=== PATIENT | male | born 1935 | race Caucasian/White ===

== ENCOUNTER 2019-01-18 19:58 | Emergency (ER) | payer MEDICARE, BC ==
[2019-01-18] MEDS ORDERED: predniSONE 20 MG Tab PO ONE (19:59)
[2019-01-18] MEDS ORDERED: Dexamethasone 4 MG/ML SDV IVPUSH ONE (20:11)
[2019-01-18] MEDS ORDERED: Loratadine 10 MG Tab PO ONE (20:11)
[2019-01-18] MEDS ORDERED: diphenhydrAMINE 50 MG/ML SDV IVPUSH ONE (20:11)
[2019-01-18] MEDS ORDERED: Famotidine 20 MG/2 ML SDV IVPUSH ONE (20:11)
--- NOTE | 2019-01-18 20:17 | EDM.PDOC ---
ED HPI GENERAL MEDICAL PROBLEM - General Chief Complaint: Allergic Reaction Stated Complaint: hives Time Seen by Provider: 01/18/19 20:07 Source of Information: Reports: Patient History Limitations: Reports: No Limitations - History of Present Illness INITIAL COMMENTS - FREE TEXT/NARRATIVE: in with c/o generalized rash with itching for the last few days, no ENT sx, no increase in sob, no problems breathing or swallowing, no cp, no abd pain, no nvdc, no fever or chills Duration: Day(s): Location: Reports: Generalized Quality: Reports: Other (itching) Severity: Moderate Improves with: Reports: None Worsens with: Reports: None Associated Symptoms: Reports: Rash. Denies: Chest Pain, Cough, Nausea/Vomiting , Shortness of Breath, Weakness Treatments [employer] COORDINATOR: Reports: Other (see below) (none) - Related Data Allergies Allergy/AdvReac Type Severity Reaction Status Date / Time No Known Allergies Allergy Verified 01/18/19 20:01 Home Meds: Home Meds . [No Known Home Meds] 01/18/19 [History] Past Medical History - Past Health History Medical/Surgical History: Denies Medical/Surgical History Social & Family History - Family History Cardiac: Reports: Hypertension - Tobacco Use Smoking Status *Q: Former Smoker (cigars, none for 15 years) - Alcohol Use Alcohol Use History: Yes Alcohol Use Frequency: Daily - Living Situation & Occupation Living situation: Reports: Single ED ROS ALLERGIC REACTION - Review of Systems Review Of Systems: See Below Constitutional: Reports: No Symptoms. Denies: Fever, Chills, Malaise, Weakness HEENT: Reports: No Symptoms Respiratory: Reports: No Symptoms. Denies: Shortness of Breath, Wheezing Cardiovascular: Reports: No Symptoms. Denies: Chest Pain Endocrine: Reports: No Symptoms GI/Abdominal: Reports: No Symptoms. Denies: Abdominal Pain, Nausea, Vomiting : Reports: No Symptoms Musculoskeletal: Reports: No Symptoms Skin: Reports: Rash Neurological: Reports: No Symptoms Psychiatric: Reports: No Symptoms ED EXAM GENERAL NO PERIP PULSE - Physical Exam Exam: See Below Exam Limited By: No Limitations General Appearance: Alert, WD/WN, No Apparent Distress Ears: Normal External Exam Nose: Normal Inspection Throat/Mouth: Normal Inspection, Normal Lips, Normal Oropharynx, Normal Voice, No Airway Compromise Head: Atraumatic, Other Neck: Normal Inspection, Supple, Non-Tender, Full Range of Motion Respiratory/Chest: No Respiratory Distress, Normal Breath Sounds, No Accessory Muscle Use, Chest Non-Tender, Wheezing (scattered exp wheexing (pt advised is chronic)) Cardiovascular: Normal Peripheral Pulses, Regular Rate, Rhythm, No Edema, No Murmur Extremities: Normal Inspection, Normal Range of Motion Neurological: Alert, Oriented, Normal Cognition, Normal Gait, No Motor/Sensory Deficits Psychiatric: Normal Affect, Normal Mood Skin Exam: Warm, Dry, Normal Color, Rash Course - Vital Signs Last Recorded V/S: Last Vital Signs Temp 37.2 C 01/18/19 20:00 Pulse 75 01/18/19 20:00 Resp 20 01/18/19 20:00 BP 138/50 L 01/18/19 20:00 Pulse Ox 97 01/18/19 20:00 - Orders/Labs/Meds Meds: Medications Discontinued Medications Generic Name Dose Route Start Last Admin Trade Name Freq PRN Reason Stop Dose Admin Dexamethasone 10 mg 01/18/19 20:11 01/18/19 20:30 Dexamethasone IVPUSH 01/18/19 20:12 10 mg ONETIME ONE Administration Diphenhydramine HCl 25 mg 01/18/19 20:11 01/18/19 20:29 Benadryl IVPUSH 01/18/19 20:12 25 mg ONETIME ONE Administration Famotidine 20 mg 01/18/19 20:11 01/18/19 20:31 Pepcid IVPUSH 01/18/19 20:12 20 mg ONETIME ONE Administration Loratadine 10 mg 01/18/19 20:11 01/18/19 20:34 Claritin PO 01/18/19 20:12 10 mg ONETIME ONE Administration Prednisone 1 packet 01/18/19 20:34 Take Home: Prednisone 20 Mg, 2 Tab Pack PO 01/18/19 20:35 ONETIME ONE Departure - Departure Time of Disposition: 20:48 Disposition: Home, Self-Care 01 Clinical Impression: Contact dermatitis Qualifiers: Contact dermatitis type: unspecified - Discharge Information *PRESCRIPTION DRUG MONITORING PROGRAM REVIEWED*: Not Applicable *COPY OF PRESCRIPTION DRUG MONITORING REPORT IN PATIENT CARLOS: Not Applicable Instructions: Rash, Contact Dermatitis, [id number] Referrals: PCP,None [Ordering Only Provider] - Forms: ED Department Discharge Additional Instructions: prednisone 50mg 1 every day for 5 days benadryl 25mg 1 every 6 hours as needed for itching pepcid 20mg (over the counter) 1 x a day for 5 days claritin 10mg 1 x a day for 5 days follow up with the clinic this we, call Sunday for an appointment time return to the ER sooner if worse or problems - Problem List & Annotations (1) Contact dermatitis SNOMED Code(s): 98564969 Code(s): L25.9 - UNSPECIFIED CONTACT DERMATITIS, UNSPECIFIED CAUSE Status: Acute Priority: High Qualifiers: Contact dermatitis type: unspecified - Problem List Review Problem List Initiated/Reviewed/Updated: Yes - Assessment/Plan Plan: will give IV Pepcid, Benadryl and Decadron along with Claritin 10mg in the ED, will dc with to continue meds, see dc instructions, will f/u with clinic this week
[2019-01-18] MEDS ORDERED: Take Home: predniSONE 20 MG, 2 Tab Pack PO ONE (20:34)
== END 2019-01-18 21:05 | disposition home or self-care (01) ==
LOC: CC.ED 19:58
DX: L25.9 Unspecified contact dermatitis, unspecified cause (principal)
CPT/HCPCS: 96374; 96375; 99282-25; 99283; A9270-GY; J1100; J1200; J3490

== ENCOUNTER 2025-06-25 13:11 | Inpatient (IN) | payer MEDICARE, BC ==
[2025-06-25] MEDS ORDERED: Sodium Chloride 0.9% 10 ML Syringe FLUSH PRN (13:37)
[2025-06-25 13:57] LABS: PLATELET COUNT,PLT 191 10^3/uL (150-400); RED BLOOD CELL COUNT 4.29 x10^6/uL (4.50-6.00); WHITE BLOOD CELL COUNT,WBC 7.6 10^3/uL (4.0-11.0)
[2025-06-25 14:15] LABS: LACTIC ACID 3.6 mmol/L (0.4-2.0)
[2025-06-25 14:16] LABS: ALANINE AMINOTRANSFERASE,ALT 16.0 U/L (12-78); ASPARTATE AMNIOTRANSFERASE,AST 21.0 U/L (15-37); BILIRUBIN TOTAL 1.3 mg/dL (0.0-1.0); BLOOD UREA NITROGEN,BUN 36.0 mg/dL (7-18); CARBON DIOXIDE,CO2 25.0 mmol/L (21-32); CHLORIDE,CL 102.0 mEq/L (98-106); CREATININE 1.9 mg/dL (0.7-1.3); EST CRCL DRUG DOSING (CG) 28.28 mL/min; GLUCOSE RANDOM 146.0 mg/dL (75-99); POTASSIUM,K 4.8 mEq/L (3.5-5.0); PROTEIN TOTAL,TP 7.3 g/dL (6.4-8.2); SODIUM,NA 139.0 mEq/L (136-145)
[2025-06-25 14:17] LABS: ESTIMATED GFR 34.0 mL/min (>=60)
[2025-06-25 14:31] LABS: CORONAVIRUS COVID-19 NAA NEGATIVE (NEGATIVE); INFLUENZA A NAA NEGATIVE (NEGATIVE); INFLUENZA B NAA NEGATIVE (NEGATIVE); RESPIRATORY SYNCYTIAL VIR NAA NEGATIVE (NEGATIVE)
[2025-06-25 14:31] LABS: BAND PERCENT MAN 27 % (0-5); LYMPHOCYTES ABSOLUTE MAN 1.22 10^3/uL (1.00-4.80); LYMPHOCYTES PERCENT MAN 16 % (21-55); METAMYELOCYTE PERCENT MAN 3 %; MONOCYTES ABSOLUTE MAN 0.30 10^3/uL (0.00-0.80); MONOCYTES PERCENT MAN 4 % (2-12); NEUTROPHILS ABSOLUTE MAN 5.85 10^3/uL (1.80-7.00); SEG NEUTROPHILS PERCENT MAN 50 % (35-85)
[2025-06-25] MEDS ORDERED: Ondansetron 4 MG/2 ML SDV IV PRN (15:03)
[2025-06-25] MEDS ORDERED: Ondansetron 4 MG Tab.DIS PO PRN (15:03)
[2025-06-25] MEDS: Furosemide 40 MG/4 ML VIAL IVPUSH ONE (15:06)
[2025-06-25] MEDS: Heparin Sodium 5,000 Units/ML Vial SUBCUT SCH (16:11)
[2025-06-25] MEDS: Timolol Maleate 0.5% Ophth Soln 5 ML Bottle EYEBOTH SCH (19:13)
[2025-06-25] MEDS ORDERED: DORZOLAMIDE EYEBOTH SCH (20:00)
[2025-06-25] MEDS ORDERED: TIMOLOL EYEBOTH SCH (20:00)
[2025-06-25] MEDS ORDERED: [UNRECOGNIZED DRUG - OTHER] EYEBOTH SCH (20:00)
[2025-06-26 07:42] LABS: PLATELET COUNT,PLT 188 10^3/uL (150-400); RED BLOOD CELL COUNT 3.82 x10^6/uL (4.50-6.00); WHITE BLOOD CELL COUNT,WBC 7.4 10^3/uL (4.0-11.0)
[2025-06-26] MEDS: Furosemide 40 MG/4 ML VIAL IVPUSH SCH (08:20)
[2025-06-26 08:36] LABS: ALANINE AMINOTRANSFERASE,ALT 16.0 U/L (12-78); ASPARTATE AMNIOTRANSFERASE,AST 18.0 U/L (15-37); BILIRUBIN TOTAL 0.4 mg/dL (0.0-1.0); BLOOD UREA NITROGEN,BUN 52.0 mg/dL (7-18); CARBON DIOXIDE,CO2 24.0 mmol/L (21-32); CHLORIDE,CL 104.0 mEq/L (98-106); CREATININE 2.0 mg/dL (0.7-1.3); EST CRCL DRUG DOSING (CG) 26.87 mL/min; GLUCOSE RANDOM 128.0 mg/dL (75-99); POTASSIUM,K 4.6 mEq/L (3.5-5.0); PROTEIN TOTAL,TP 6.7 g/dL (6.4-8.2); SODIUM,NA 140.0 mEq/L (136-145)
[2025-06-26 08:43] LABS: ESTIMATED GFR 32.0 mL/min (>=60)
[2025-06-26 09:09] LABS: BAND PERCENT MAN 41 % (0-5); LYMPHOCYTES ABSOLUTE MAN 0.37 10^3/uL (1.00-4.80); LYMPHOCYTES PERCENT MAN 5 % (21-55); METAMYELOCYTE PERCENT MAN 10 %; MONOCYTES ABSOLUTE MAN 0.30 10^3/uL (0.00-0.80); MONOCYTES PERCENT MAN 4 % (2-12); NEUTROPHILS ABSOLUTE MAN 5.99 10^3/uL (1.80-7.00); SEG NEUTROPHILS PERCENT MAN 40 % (35-85)
[2025-06-27 08:04] LABS: PLATELET COUNT,PLT 211 10^3/uL (150-400); RED BLOOD CELL COUNT 3.76 x10^6/uL (4.50-6.00); WHITE BLOOD CELL COUNT,WBC 10.3 10^3/uL (4.0-11.0)
[2025-06-27 08:14] LABS: ALANINE AMINOTRANSFERASE,ALT 13.0 U/L (12-78); ASPARTATE AMNIOTRANSFERASE,AST 16.0 U/L (15-37); BILIRUBIN TOTAL 0.3 mg/dL (0.0-1.0); BLOOD UREA NITROGEN,BUN 59.0 mg/dL (7-18); CARBON DIOXIDE,CO2 34.0 mmol/L (21-32); CHLORIDE,CL 102.0 mEq/L (98-106); CREATININE 1.6 mg/dL (0.7-1.3); EST CRCL DRUG DOSING (CG) 33.59 mL/min; GLUCOSE RANDOM 147.0 mg/dL (75-99); POTASSIUM,K 4.6 mEq/L (3.5-5.0); PROTEIN TOTAL,TP 6.8 g/dL (6.4-8.2); SODIUM,NA 143.0 mEq/L (136-145)
[2025-06-27 08:23] LABS: ESTIMATED GFR 41.0 mL/min (>=60)
[2025-06-27 08:49] LABS: BAND PERCENT MAN 27 % (0-5); LYMPHOCYTES ABSOLUTE MAN 0.41 10^3/uL (1.00-4.80); LYMPHOCYTES PERCENT MAN 4 % (21-55); METAMYELOCYTE PERCENT MAN 3 %; MONOCYTES ABSOLUTE MAN 0.31 10^3/uL (0.00-0.80); MONOCYTES PERCENT MAN 3 % (2-12); NEUTROPHILS ABSOLUTE MAN 9.27 10^3/uL (1.80-7.00); SEG NEUTROPHILS PERCENT MAN 63 % (35-85)
[2025-06-27] MEDS: Nystatin Topical Powder 15 GM Bottle TOP PRN (16:45)
[2025-06-28] MEDS: Albuterol 0.083% 2.5 MG/3 ML Neb Soln NEB PRN (03:42)
[2025-06-28 08:09] LABS: BASOPHILS ABSOLUTE AUTO 0.01 10^3/uL (0.00-0.50); BASOPHILS PERCENT AUTO 0.1 % (0-1); EOSINOPHILS ABSOLUTE AUTO 0.00 10^3/uL (0.00-1.50); EOSINOPHILS PERCENT AUTO 0.0 % (0-6); IMMATURE GRAN ABSOLUTE AUTO 0.36 10^3/uL (0.00-0.49); IMMATURE GRAN PERCENT AUTO 4.3 % (0.0-4.9); LYMPHOCYTES ABSOLUTE AUTO 0.41 10^3/uL (0.60-5.00); LYMPHOCYTES PERCENT AUTO 4.9 % (24-44); MONOCYTES ABSOLUTE AUTO 0.75 10^3/uL (0.00-1.50); MONOCYTES PERCENT AUTO 8.9 % (0-10); NEUTROPHILS ABSOLUTE AUTO 6.90 x10^3/uL (1.80-8.00); NEUTROPHILS PERCENT AUTO 81.8 % (41-71); PLATELET COUNT,PLT 208 10^3/uL (150-400); RED BLOOD CELL COUNT 3.63 x10^6/uL (4.50-6.00); WHITE BLOOD CELL COUNT,WBC 8.4 10^3/uL (4.0-11.0)
[2025-06-28 08:17] LABS: ALANINE AMINOTRANSFERASE,ALT 11.0 U/L (12-78); ASPARTATE AMNIOTRANSFERASE,AST 25.0 U/L (15-37); BILIRUBIN TOTAL 0.3 mg/dL (0.0-1.0); BLOOD UREA NITROGEN,BUN 67.0 mg/dL (7-18); CARBON DIOXIDE,CO2 30.0 mmol/L (21-32); CHLORIDE,CL 106.0 mEq/L (98-106); CREATININE 1.8 mg/dL (0.7-1.3); EST CRCL DRUG DOSING (CG) 29.85 mL/min; GLUCOSE RANDOM 135.0 mg/dL (75-99); POTASSIUM,K 4.1 mEq/L (3.5-5.0); PROTEIN TOTAL,TP 6.5 g/dL (6.4-8.2); SODIUM,NA 147.0 mEq/L (136-145)
[2025-06-28 08:18] LABS: ESTIMATED GFR 36.0 mL/min (>=60)
[2025-06-29] MEDS ORDERED: LORazepam 2 MG/ML SDV IVPUSH PRN (00:50)
== END 2025-06-29 00:59 | disposition expired | DRG 871 ==
LOC: CC.ED 13:11 → UNDOADMIN 14:45 → CC.MS 14:45
PROVIDERS: ADMIT Nurse Practitioner Family; ATTEND Nurse Practitioner Family
PROC: 3E03329 Introduction of Other Anti-infective into Peripheral Vein, Percutaneous Approach (ICD-10-PCS; principal; 2025-06-25)
PROC: 5A0945A Assistance with Respiratory Ventilation, 24-96 Consecutive Hours, High Flow/Velocity Cannula (ICD-10-PCS; 2025-06-27)
PROC: 0T9B70Z Drainage of Bladder with Drainage Device, Via Natural or Artificial Opening (ICD-10-PCS; 2025-06-27)
DX: A40.3 Sepsis due to Streptococcus pneumoniae (principal); J13 Pneumonia due to Streptococcus pneumoniae; R65.20 Severe sepsis without septic shock; N17.9 Acute kidney failure, unspecified; E87.20 Acidosis, unspecified; Z51.5 Encounter for palliative care; Z66 Do not resuscitate; R09.02 Hypoxemia; N18.9 Chronic kidney disease, unspecified; I50.9 Heart failure, unspecified; R79.82 Elevated C-reactive protein (CRP); R79.89 Other specified abnormal findings of blood chemistry; Z79.1 Long term (current) use of non-steroidal anti-inflammatories (NSAID); Z79.899 Other long term (current) drug therapy; Z79.82 Long term (current) use of aspirin; Z79.2 Long term (current) use of antibiotics; Z98.49 Cataract extraction status, unspecified eye
CPT/HCPCS: 36415; 51702; 71045; 80053; 83605; 83735; 83880; 84484; 85025; 86140; 87040; 87077; 87186; 87637; 93005; 93010; 94640; 97161-GP; 99223; 99232; 99233; 99238; 99285; A9270-GY; J0456; J0696; J1644; J1938; J2270; J2543; J7030; J7050